=== PATIENT | female | born 1955 | race Caucasian/White ===

== ENCOUNTER 2022-07-16 10:12 | Emergency (ER) | payer MEDICARE ==
[~2022-07-16] VITALS: Ht 165.1 cm; Wt 67.1 kg
[2022-07-16 10:45] LABS: BASOPHILS % (AUTO) 0.5 % (0.0-5.0); EOSINOPHILS % (AUTO) 0.9 % (0.0-8.0); HEMATOCRIT 40.1 % (36-48); LYMPHOCYTES % (AUTO) 28.8 % (21.0-51.0); MEAN CORPUSCULAR HEMOGLOBIN 32.1 pg (27.0-33.0); MEAN CORPUSCULAR HGB CONC 32.9 g/dL (32.0-36.0); MEAN CORPUSCULAR VOLUME 97.6 fL (79-99); MONOCYTES % (AUTO) 6.3 % (3.0-13.0); PLATELET COUNT (AUTO) 214 K/uL (130-400); RED BLOOD CELL COUNT(AUTO) 4.11 MIL/uL (4.00-5.50); RED CELL DISTRIBUTION WIDTH 13.1 % (11.0-15.5); WHITE BLOOD COUNT (AUTO) 6.3 K/uL (4.8-10.8)
[2022-07-16 11:13] LABS: CREATININE 0.8 mg/dL (0.5-1.5)
[2022-07-16] MEDS ORDERED: ALBUTEROL INHALER 90MCG/INH IH PRN (11:30)
[2022-07-16] MEDS ORDERED: NIFEDIPINE 10 MG CAP PO SCH (11:30)
[2022-07-16 11:49] LABS: ALBUMIN 4.6 g/dL (3.5-5.0); TOTAL PROTEIN, SERUM 7.9 g/dL (6.0-8.3)
[2022-07-16 12:09] VITALS: BP 146/73
[2022-07-16] MEDS ORDERED: ALBU8.5H8 IH (12:18)
[2022-07-16] MEDS ORDERED: MONT10TA21 PO (12:18)
== END 2022-07-16 12:25 | disposition home or self-care (01) ==
LOC: EDH 10:12
DX: I10 Essential (primary) hypertension (principal); R06.00 Dyspnea, unspecified; U09.9 Post COVID-19 condition, unspecified; Z20.822 Contact with and (suspected) exposure to COVID-19
CPT/HCPCS: 99284; 71045; 87635; 84484; 80053; 83880; 85025; 87804 ×2; 36415; C9803